=== PATIENT | female | born 2000 | race Caucasian/White ===

== ENCOUNTER → 2020-10-30 08:51 | Outpatient (CLI) | payer OTHER, SELFPAY ==
[2020-10-30 10:24] LABS: Appearance Urine UA CLEAR; Bilirubin Urine UA NEGATIVE (NEGATIVE); Color Urine UA YELLOW; Glucose Urine UA NEGATIVE (Negative); Ketones Urine UA NEGATIVE (NEGATIVE); Leukocyte Esterase Urine UA TRACE (NEGATIVE); Nitrite Urine UA NEGATIVE (Negative); Occult Blood Urine UA TRACE-LYSED (Negative); Protein Urine UA NEGATIVE (Negative); Urobilinogen Urine UA 0.2 E.U./dL (0.2)
[2020-10-30 10:27] LABS: Bacteria Urine None Seen; RBC Urine None Seen (0-5/HPF); WBC Urine None Seen (0-5/HPF)
[2020-10-30 10:33] LABS: Culture Indicated Urine Cult Not Indicated; Transitional Epi Cells Urine 1-5/HPF (0-5/HPF)
[2020-10-30 11:00] LABS: Add Manual Diff / Slide Review NO; Basophils Absolute Auto 0 /uL (0-100); Basophils Percent Auto 0.3 % (0-2); Eosinophils Absolute Auto 100 /uL (0-450); Eosinophils Percent Auto 1.1 % (2-4); Hematocrit 36.7 % (36-46); Hemoglobin 12.1 g/dL (12.0-16.0); Lymphocytes Absolute Auto 1600 /uL (1100-4500); Lymphocytes Percent Auto 23.3 % (25-40); Mean Corpuscular HGB Conc 33.1 % (30-36); Mean Corpuscular Volume 84.7 fL (80-100); Monocytes Absolute Auto 400 /uL (0-900); Monocytes Percent Auto 5.9 % (3-14); Neutrophils Absolute Auto 4900 /uL (1500-7000); Neutrophils Percent Auto 69.4 % (50-75); Platelet Count 169 X10^3/uL (150-400); Red Blood Cell Count 4.33 X10^6/uL (4.0-5.2); Red Cell Distribution Width 14.4 % (11.6-14.8); White Blood Cell Count 7.1 X10^3/uL (4.5-11.0)
[2020-10-30 12:06] LABS: Hepatitis B Surface Antigen NEGATIVE s/c (NEGATIVE); Rubella Antibody IgG 51.7 IU/mL (>15)
[2020-10-30 12:23] LABS: HIV 1 & 2 Ab/Ag 4th Gen Combo NEGATIVE (NEGATIVE); Hep C Virus Ab w/Reflex Quant NEGATIVE s/c (NEGATIVE)
[2020-10-30 14:33] LABS: Urine N gonorrhoeae NOT DETECTED
[2020-10-30 14:34] LABS: Urine Chlamydia NOT DETECTED
[2020-10-31 07:39] LABS: RPR Screen Non Reactive (Non Reactive)
[2020-10-31 08:09] LABS: Varicella IgG Antibody 218 index (Immune >165)
== END ==
PROVIDERS: Referring Provider Specialist; Visit Provider Specialist
DX: Z34.01 Encounter for supervision of normal first pregnancy, first trimester (principal); Z3A.11 11 weeks gestation of pregnancy
CPT/HCPCS: 36415; 80055; 81003; 81015; 86787; 86803; 86850; 86900; 86901; 87086; 87389; 87491; 87591

== ENCOUNTER → 2020-12-25 12:16 | Outpatient (CLI) | payer OTHER, SELFPAY ==
--- NOTE | 2020-12-25 12:16 | DI.US.S_ITS ---
PROCEDURE: US OB >= 14 WEEKS FETUS INDICATIONS: 20 week anatomy OUTSIDE/PRIOR DATING DATA: Last menstrual period (LMP): 08/09/2020. LMP-based estimated date of delivery (DANY): 05/16/2021 . First dating scan (date and location): 10/30/2020 . Estimated date of delivery (DANY) from first dating scan: 05/11/2021 . TECHNIQUE: Real-time scanning was performed of the fetus, with image documentation and biometric measurements. Endovaginal scanning: No COMPARISON: [facility], , OB <= 14 WEEKS FETUS, 10/30/2020, 8:42. [facility] [place], , OB <= 14 WEEKS FETUS, 11/04/2020, 12:51. FINDINGS: General: A single living intrauterine gestation is present. Presentation: Vertex. Placenta: Placental position is anterior , without previa. Amniotic fluid index: 13.3 cm, normal range is 5-24 cm. heart rate: 141 beats per minute. Maternal cervical canal: 4.9 cm long. Normal lower limit is 2.5 cm. biometrics: Biparietal diameter: 19 weeks 5 days Head circumference: 19 weeks 4 days Abdominal circumference: 20 weeks 1 day Femur length: 20 weeks 5 days Estimated gestational age from initial scan: 20 weeks 3 days Composite gestational age from present scan: 20 weeks Estimated weight and percentile: 342 g, 36 percentile Measurement variability for biometric dating: +/- 7 days from 14 weeks to 15 weeks 6 days gestation, +/- 10 days from 16 weeks to 21 weeks 6 days gestation, +/- 2 weeks from 22 weeks to 27 weeks 6 days gestation, +/- 3 weeks for 28 weeks gestation or later. weight reference: 4500 g or EFW >90/95% is considered macrosomia or large for gestational age. EFW <10% is small for gestational age. EFW 5% or less is considered intra-uterine growth restriction. Anatomic survey: Neuro: Ventricles are non-dilated at less than 10 mm. Cisterna magna is normal at 3-11 mm. Cerebellum is normal in size and morphology. Nuchal skin fold: Normal at less than 6 mm between 14-21 weeks gestational age. Face: Nose and lips, facial profile are normal. Spine: No evidence for spina bifida. Heart: 4-chambered heart is present, with normal ventricular outflow tracts. Diaphragm: Diaphragm is intact. Stomach: Left-sided stomach is present. Kidneys: No hydronephrosis. Normal is less than 5 mm in 2nd trimester, less than 7 mm in 3rd trimester. Cord: 3-vessel cord has orthotopic insertion. Bladder: Normal in size. Extremities: All 4 extremities identified. IMPRESSION: 1. Single living IUP redemonstrated and interval growth is normal. 2. Normal anatomic survey. Dictated by: Yobani Dixon RR Interpreted: Freddy Garcia MD on 12/25/2020 at 13:41 Transcribed by: JHON on 12/25/2020 at 13:45 Approved by: Freddy Garcia M.D. on 12/26/2020 at 9:32
== END ==
PROVIDERS: Referring Provider Specialist; Visit Provider Specialist
DX: Z34.82 Encounter for supervision of other normal pregnancy, second trimester (principal); Z3A.20 20 weeks gestation of pregnancy
CPT/HCPCS: 76811

== ENCOUNTER → 2021-02-12 08:08 | Outpatient (CLI) | payer OTHER, SELFPAY ==
[2021-02-12 09:58] LABS: Hematocrit 34.2 % (36-46); Hemoglobin 11.7 g/dL (12.0-16.0)
[2021-02-12 10:21] LABS: GTT (PREG) 1 Hour PP 50gm Dose 81 mg/dL (76-139)
== END ==
PROVIDERS: Referring Provider Specialist; Visit Provider Specialist
DX: Z34.02 Encounter for supervision of normal first pregnancy, second trimester (principal); Z3A.26 26 weeks gestation of pregnancy
CPT/HCPCS: 36415; 82950; 85014; 85018

== ENCOUNTER → 2021-04-22 14:42 | Outpatient (CLI) | payer OTHER, SELFPAY ==
[2021-04-24 11:16] LABS: Strep Grp B PCR NEG for Grp B Strep
== END ==
PROVIDERS: Visit Provider Specialist
DX: Z34.03 Encounter for supervision of normal first pregnancy, third trimester (principal); Z3A.36 36 weeks gestation of pregnancy
CPT/HCPCS: 87653

== ENCOUNTER 2021-05-14 02:49 | Inpatient (IN) | payer OTHER, SELFPAY ==
[2021-05-14 04:00] LABS: Add Manual Diff / Slide Review NO; Basophils Absolute Auto 0 /uL (0-100); Basophils Percent Auto 0.2 % (0-2); Eosinophils Absolute Auto 0 /uL (0-450); Eosinophils Percent Auto 0.3 % (2-4); Hematocrit 32.8 % (36-46); Hemoglobin 10.8 g/dL (12.0-16.0); Lymphocytes Absolute Auto 1600 /uL (1100-4500); Lymphocytes Percent Auto 14.4 % (25-40); Mean Corpuscular Hemoglobin 26.7 PG (26-34); Mean Corpuscular Volume 80.8 fL (80-100); Monocytes Absolute Auto 700 /uL (0-900); Monocytes Percent Auto 6.2 % (3-14); Neutrophils Absolute Auto 8800 /uL (1500-7000); Neutrophils Percent Auto 78.9 % (50-75); Platelet Count 235 X10^3/uL (150-400); Red Blood Cell Count 4.06 X10^6/uL (4.0-5.2); Red Cell Distribution Width 14.1 % (11.6-14.8); White Blood Cell Count 11.1 X10^3/uL (4.5-11.0)
[2021-05-14 04:50] LABS: COVID19 - ADMIT (NP swab/PCR) Negative (Negative)
[2021-05-14 05:00] VITALS: BP 123/75
[2021-05-14] MEDS: LACTATED RINGERS 1,000 ML 100 ML IV ×2 (05:00→06:00)
--- NOTE | 2021-05-14 05:18 | PM.AN.REGBLK ---
Regional [facility] Pre-procedure Procedure: Continuous Lumbar Epidural for L&D Attending OB provider: Diana Lazaro PM/YESIKA narrative: term labor, no complications ASA Class: II Labs: Hct 32.8 % (36-46) L 05/14/21 03:35 Plt Count 235 X10^3/uL (150-400) 05/14/21 03:35 Medications: Current Medications Generic Name Dose Route Start Last Admin Trade Name Freq PRN Reason Stop Dose Admin Calcium Carbonate 1,000 mg 05/14/21 03:17 Calcium Carbonate 500 Mg Tab PO Q2HR PRN Dyspepsia Calcium Carbonate 1,000 mg 05/14/21 05:00 Calcium Carbonate 500 Mg Tab PO Q2HR PRN Dyspepsia Carboprost Tromethamine 250 mcg 05/14/21 03:17 Carboprost 250 Mcg/Ml Ampul IM Q90M PRN Bleeding Carboprost Tromethamine 250 mcg 05/14/21 05:00 Carboprost 250 Mcg/Ml Ampul IM Q90M PRN Bleeding Fentanyl 50 mcg 05/14/21 03:17 Fentanyl 100 Mcg/2 Ml Inj IV Q1H PRN Pain, Moderate (4-6) Fentanyl 100 mcg 05/14/21 05:00 Fentanyl 100 Mcg/2 Ml Inj IV Q1H PRN Pain, Severe (7-10) Lactated Ringer's 1,000 mls @ 100 mls/hr 05/14/21 03:30 Lactated Ringers IV CONT ANGY Oxytocin/Lactated Ringer's 30 unit in 500 mls @ 200 mls/hr 05/14/21 03:17 Oxytocin Premix IV CONT PRN Bleeding Protocol Tranexamic Acid 1,000 mg/ 100 mls @ 200 mls/hr 05/14/21 03:17 Sodium Chloride IV NOW PRN Bleeding Lactated Ringer's 1,000 mls @ 100 mls/hr 05/14/21 05:00 Lactated Ringers IV CONT ANGY Oxytocin/Lactated Ringer's 30 unit in 500 mls @ 200 mls/hr 05/14/21 05:00 Oxytocin Premix IV CONT PRN Bleeding Protocol Tranexamic Acid 1,000 mg/ 100 mls @ 200 mls/hr 05/14/21 05:00 Sodium Chloride IV NOW PRN Bleeding Methylergonovine Maleate 0.2 mg 05/14/21 03:17 Methylergonovine 0.2 Mg Tablet PO Q6HR PRN Heavy Bleeding Methylergonovine Maleate 0.2 mg 05/14/21 03:17 Methylergonovine 0.2 Mg/Ml Vial IM NOW PRN Bleeding Methylergonovine Maleate 0.2 mg 05/14/21 05:00 Methylergonovine 0.2 Mg/Ml Vial IM NOW PRN Bleeding Methylergonovine Maleate 0.2 mg 05/14/21 05:00 Methylergonovine 0.2 Mg Tablet PO Q6HR PRN Heavy Bleeding Misoprostol 800 mcg 05/14/21 03:17 Misoprostol 200 Mcg Tablet NC NOW PRN Bleeding Misoprostol 1,000 mcg 05/14/21 03:17 Misoprostol 200 Mcg Tablet NC NOW PRN Bleeding Misoprostol 400 mcg 05/14/21 03:17 Misoprostol 200 Mcg Tablet SL NOW PRN Bleeding Misoprostol 400 mcg 05/14/21 05:00 Misoprostol 200 Mcg Tablet SL NOW PRN Bleeding Misoprostol 1,000 mcg 05/14/21 05:00 Misoprostol 200 Mcg Tablet NC NOW PRN Bleeding Misoprostol 800 mcg 05/14/21 05:00 Misoprostol 200 Mcg Tablet NC NOW PRN Bleeding Naloxone HCl 0.2 mg 05/14/21 03:17 Naloxone 0.4 Mg/Ml Vial IV Q2MIN PRN Opiate Reversal Ondansetron HCl 4 mg 05/14/21 05:00 Ondansetron 4 Mg/2 Ml Inj IV Q4HR PRN Nausea And Vomiting Oxytocin 10 unit 05/14/21 03:17 Oxytocin 10 Unit/Ml Vial IM NOW PRN Bleeding Oxytocin 10 unit 05/14/21 05:00 Oxytocin 10 Unit/Ml Vial IM NOW PRN Bleeding Allergies: Allergies Allergy/AdvReac Type Severity Reaction Status Date / Time No Known Drug Allergies Allergy Verified 10/28/20 12:12 Procedure Insertion date: 05/14/21 Insertion time: 05:30 Prep/Local: betadine x3 and 1% lidocaine Interspace: L2-3 Patient position: sitting Needle: 18 gauge Christopher (CSE: 27g Pencan through Hustead, clear CSF, 1mL 0.25% bupiv) Loss of resistance with: saline ELVIRA at (cm): 6 Catheter placed at SKIN (cm): 11 Catheter in SPACE (cm): 5 Insertion: No CSF, No Blood, No Paresthesia with insertion, No Paresthesia with injection and No Test dose reaction Initial Medications TEST DOSE time: 05:32 BOLUS DOSE time: 05:44 BOLUS DOSE (mL): 3 BOLUS DOSE med: other (infusate) Infusion INFUSION: 0.125% bupivacaine and with fentanyl 2 mcg/mL Initial rate (mL/hr): 6 Subsequent interventions: Post-procedure Anesthesia time START: 05:24 Anesthesia time END: 11:03 Post-procedure Anesthesia Assessment: Yes CV function: HR/BP stable, Yes Resp function: RR/sat/airway adequate, Yes Mental status appropriate and No Anesthesia complications
--- NOTE | 2021-05-14 07:45 | P.HPOB_ITS ---
OB HPI Date/Time Date of admission: 05/14/21 Date Patient Seen: 05/14/21 Time Patient Seen: 07:45 History of Present Condition Chief complaint: Contractions : 2 Para: 0 Estimated Date of Delivery: 05/16/21 Estimated Gestational Age (weeks): 39 Narrative: Viraj Forrest is a 20 year old female admitted in active labor History of Present care: good care, initiated at week # (11), number of visits (12) and pounds weight gain (11) Dating criteria: based on 1st trimester US only Ultrasounds: normal mid trimester US Obstetrical complications: none Medical complications: none Preadmission Labs Blood type: A (+) positive -: Antibody screen: negative, GBS status: negative, HBsAG: negative, HIV: negative and RPR/VDLR: negative -: Chlamydia screen: not detected and Gonorrhea screen: not detected -: Rubella: immune and Varicella: immune HCAB: negative 1 hr GTT: 81 Evaluation Evaluation Baseline heart rate: 130 Variability: Moderate (11-25) monitor accelerations: Present Monitor Decelerations: Absent Contraction Frequency (minutes): 3 Uterine Contraction Intensity: Strong/Firm Category of Tracing: Reactive Status: Category l Dilation (cm): 9 Effacement (%): 100 station: 0 PFSH Medical History (Updated 10/30/20 @ 09:03 by Diana Lazaro MD) Ankle fracture, left (~2007) Ankle fracture, right (~2016) Bacterial vaginosis Nexplanon insertion (~04/2018) Nexplanon removal (~09/2018) SAB (spontaneous ) (~02/2020) Yeast infection Surgical History (Updated 10/28/20 @ 12:53 by Catherine Mondragon RN) No history of previous surgery Family History (Updated 10/28/20 @ 12:46 by Catherine Mondragon RN) Mother Addiction Drug abuse in remission Father Family estrangement Grandmother Smoker Grandfather Smoker Grandmother Family estrangement Unknown whether patient has any health problems Grandfather Family estrangement Unknown whether patient has any health problems Family/Other Family history of drug addiction Sister Diabetes mellitus Type 1 diabetes Brother No problems noted. 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 orthodox: Rastafarian special héctor needs: No Smoking Status: Never smoker second hand exposure: No alcohol intake: former (Pre- : social use) substance use type: does not use and marijuana (In High School) Meds Home Medications and Allergies Home Medications Medication Instructions Recorded Confirmed Type prenat.vits,liz,xmz-prvu-ynitn 1 tab PO DAILY 10/28/20 05/13/21 History ondansetron 4 mg disintegrating 4 mg PO Q6H PRN #20 tab 11/03/20 05/13/21 Rx tablet omeprazole 40 mg capsule,delayed 40 mg PO DAILY #30 cap 04/01/21 05/13/21 Rx release Allergies Allergy/AdvReac Type Severity Reaction Status Date / Time No Known Drug Allergies Allergy Verified 10/28/20 12:12 Review of Systems Review of Systems Narrative: Patient denies rupture membranes. No headaches, scotomata, ep igastric pain. OB Exam Narrative Exam Narrative: Blood pressure 116/62, pulse 0 on about 3 8, temperature 36.7? HEENT exam within normal limits. Lungs are clear to auscultation percussion. Heart is regular rate rhythm no S3-S4 murmurs. Abdomen is gravid and nontender. Fetus is vertex. Extremities without edema and nontender. Objective Labs Result Diagrams: 05/14/21 03:35 Labs: Laboratory Results - last 24 hr 05/14/21 05/14/21 05/14/21 03:35 03:35 03:45 WBC 11.1 H RBC 4.06 Hgb 10.8 L Hct 32.8 L MCV 80.8 MCH 26.7 MCHC 33.0 RDW 14.1 Plt Count 235 Neut % (Auto) 78.9 H Lymph % (Auto) 14.4 L [facility] % (Auto) 6.2 Eos % (Auto) 0.3 L Baso % (Auto) 0.2 Neut # (Auto) 8800 H Lymph # (Auto) 1600 [facility] # (Auto) 700 Eos # (Auto) 0 Baso # (Auto) 0 SARS-CoV-2 (PCR) Negative Blood Type A Positive Antibody Screen Negative Assessment and Plan Assessment and Plan Assessment and Plan narrative: Term in active labor. Patient received an epidural for pain control. Anticipate vaginal delivery.
--- NOTE | 2021-05-14 12:11 | PM.OBPRVD ---
Labor & Delivery Delivery date: 05/14/21 Intrapartal Events: None Cervical ripening method: none Induction method: none Delivery monitor: external FHT and external uterine Route of delivery: L&D Laceration Description: Periurethral - 1st Degree and Perineal - 1st Degree Delivery repair: chromic (3 0) Estimated blood loss (mL): 300 Anesthesia Type: Epidural Narrative: Patient arrived on Labor and delivery in active labor. She received an epidural catheter for pain control. heart tones category 1 to category 2 throughout labor. With rupture membranes the patient was found to have light meconium-stained fluid. After just over 3 hours of pushing the patient delivered spontaneously, over an intact perineum. The viable female was placed on maternal abdomen. After the cord stopped pulsating the cord was clamped, cut, and cord bloods obtained. The placenta delivered spontaneously, intact, with 3 vessels. There were no cervical or vaginal tears. A first-degree perineal midline tear was repaired with 3 0 chromic suture and a first-degree right labial tear was repaired with 3 0 chromic suture. Both and mother doing well. Baby 1: Infant gender: Female Presentation: vertex Position: Left Occiput Transverse Placenta delivery description: Spontaneous Cord Vessel Description: 3 Vessels score (1 min): 8 score (5 min): 9 Plan for aftercare: Routine care
[2021-05-14] MEDS: DERMOPLAST SPRAY 20% 60 ML 1 SPRAY TOP (14:31)
[2021-05-14] MEDS: IBUPROFEN 600 MG TABLET PO ×2 (14:32→21:05)
[2021-05-14] MEDS: ACETAMINOPHEN 325 MG TABLET 650 MG PO (14:32)
[2021-05-14] MEDS: LANOLIN OINT 7 GM 1 APPLIC TOP (14:33)
[2021-05-15] MEDS: IBUPROFEN 600 MG TABLET PO ×2 (03:02→09:25)
[2021-05-15 06:09] LABS: Add Manual Diff / Slide Review NO; Basophils Absolute Auto 0 /uL (0-100); Basophils Percent Auto 0.2 % (0-2); Eosinophils Absolute Auto 100 /uL (0-450); Eosinophils Percent Auto 0.8 % (2-4); Hematocrit 26.6 % (36-46); Hemoglobin 8.9 g/dL (12.0-16.0); Lymphocytes Absolute Auto 2400 /uL (1100-4500); Mean Corpuscular HGB Conc 33.4 % (30-36); Mean Corpuscular Hemoglobin 27.3 PG (26-34); Mean Corpuscular Volume 81.7 fL (80-100); Monocytes Absolute Auto 800 /uL (0-900); Monocytes Percent Auto 7.5 % (3-14); Neutrophils Absolute Auto 6800 /uL (1500-7000); Neutrophils Percent Auto 67.5 % (50-75); Platelet Count 207 X10^3/uL (150-400); Red Blood Cell Count 3.26 X10^6/uL (4.0-5.2); Red Cell Distribution Width 14.2 % (11.6-14.8); White Blood Cell Count 10.1 X10^3/uL (4.5-11.0)
[2021-05-15 09:57] VITALS: BP 118/76; PULSE 81; RESP 18; TEMP 37
--- NOTE | 2021-05-15 11:46 | PM.OBDS.1 ---
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 She received an epidural catheter for pain control. She had a spontaneous vaginal delivery with repair of 2 first-degree tears. She is ambulatory. No headaches, scotomata, epigastric pain. She is urinating well. She is passing gas. Peripartum Data Infant Delivery Method: Natural Vaginal Laceration Description: Perineal - 1st Degree and Labial (Right 1st degree) Procedures: Epidural catheter, spontaneous vaginal delivery, repair of first-degree perineal and labial tears complications: none [place] 1: Gender: Female Disposition of : home Discharge Diagnosis (1) Vaginal delivery: Status: Acute Status at Discharge Cognitive/behavioral status at discharge: oriented Functional status at discharge: independent ambulation Overall status at discharge: patient is progressing back to baseline Time Spent with Patient Time attestation: Total time spent providing and/or coordinating discharge services: Time spent: Less than 30 minutes Objective Labs Result Diagrams: 05/15/21 05:55 Labs: Laboratory Results - last 24 hr 05/15/21 05:55 WBC 10.1 RBC 3.26 L Hgb 8.9 L Hct 26.6 L MCV 81.7 MCH 27.3 MCHC 33.4 RDW 14.2 Plt Count 207 Neut % (Auto) 67.5 Lymph % (Auto) 24.0 L [facility] % (Auto) 7.5 Eos % (Auto) 0.8 L Baso % (Auto) 0.2 Neut # (Auto) 6800 Lymph # (Auto) 2400 [place] # (Auto) 800 Eos # (Auto) 100 Baso # (Auto) 0 Exam Vital Signs (past 8 hours): Blood pressure 118/76, pulse of 81, temperature 98.6? 05/15/21 09:57 Temperature 98.6 F Pulse Rate 81 Respiratory Rate 18 Blood Pressure 118/76 Narrative Exam Narrative: Abdomen is soft, nontender. Uterus is firm, at U, nontender. Repair is intact. Mild lochia. Extremities without edema and nontender. Patient is Rh positive, she is rubella immune, she received Tdap in the 3rd trimester Discharge Plan Discharge Plan Patient Disposition: Home Discharge orders & Medications Prescriptions: Continued ondansetron 4 mg tablet,disintegrating 4 mg PO Q6H PRN (Reason: nausea and vomiting) Qty: 20 RF: 0 omeprazole 40 mg capsule,delayed release(DR/EC) 40 mg PO DAILY Qty: 30 RF: 5 prenat.vits,ilz,aam-oakc-ndzyc Tablet 1 tab PO DAILY RF: 0 Follow up/Referrals: Diana Lazaro MD [Physician] - (4 week appt w/ Dr. Lazaro: @ 1:30pm appt: @ 12pm) Diet/Activity/Treatments Diet: Regular Activity: Nothing in vagina for 6 weeks Skin/Wound/Dressing Care Report to your healthcare provider any signs of infection, such as:: chills, fever and increased pain Visit Report/Discharge Packet Stand Alone Forms: Discharge: Care Discharge Data Primary Care Provider: Miscellaneous,Doctor
== END 2021-05-15 14:10 | disposition home or self-care (01) | DRG 807 ==
PROVIDERS: Student in an Organized Health Care Education/Training Program; Admitting Provider Specialist; Referring Provider Specialist; Visit Provider Specialist
DX: O70.0 First degree perineal laceration during delivery (principal); Z37.0 Single live birth; O77.0 Labor and delivery complicated by meconium in amniotic fluid; Z3A.39 39 weeks gestation of pregnancy; Z20.822 Contact with and (suspected) exposure to COVID-19
CPT/HCPCS: 01967; 36415; 59050; 59400; 85025; 86850; 86900; 86901; 87635; C9803; G0379